=== PATIENT | male | born 1960 | race Caucasian/White ===

== ENCOUNTER → 2018-11-17 | Outpatient (CLI) | payer OTHER ==
[~2018-11-17] MED LIST: METHACHOLINE KIT (J7674) INH ONE
== END ==
LOC: M CARPUL 14:24
PROVIDERS: ATTEND Internal Medicine Pulmonary Disease
DX: R05 Cough (principal)

== ENCOUNTER → 2019-04-18 | Outpatient (CLI) | payer OTHER ==
--- NOTE | 2019-04-18 14:03 | PFTRPT ---
Site: [facility], [address] [place], [address] ID: [id number] Name: AVA FELDER Visit Date: 04/18/2019 Second ID: [id number] Referring Doctor: Nitish Everett MD Reviewing Doctor: Nitish Everett MD Healthcare Prof: Perez PITTMAN, DAKOTA Age: 59 : 1960 Sex: Male Race: Height: 69.25 Inches Weight: 300.00 Lbs BSA: 2.46 Order IDs: [id number] Requested Test(s): <RESP-PFT.METH CHAL> Diagnosis: R05 of albuterol for postbronchodilator. Review Status: Not Reviewed Pre-Bronch Post-Bronch Pred Actual %Pred Actual %Chng SPIROMETRY FVC (L) 4.70 1.96 41 1.80 -8 FEV1 (L) 3.57 1.49 41 1.41 -5 FEV1/FVC (%) 76 76 100 78 2 FEF 25% (L/sec) 8.66 3.29 37 3.74 13 FEF 50% (L/sec) 5.61 1.52 27 1.25 -17 FEF 75% (L/sec) 1.72 0.46 26 0.32 -30 FEF 25-75% (L/sec) 2.99 1.18 39 0.92 -22 FEF Max (L/sec) 9.18 4.48 48 4.36 -2 FIVC (L) 1.88 1.68 -10 FIF 50% (L/sec) 4.77 3.32 69 3.19 -3 FIF Max (L/sec) 3.32 3.20 -3 Expiratory Time (sec) 7.26 7.38 1 Back Extrap Vol (L) 0.04 0.05 22 Time To FEFmax (sec) 0.068 0.086 26
== END ==
LOC: M CARPUL 13:13
PROVIDERS: ATTEND Internal Medicine Pulmonary Disease
DX: R05 Cough (principal)
CPT/HCPCS: 94070; J7674

== ENCOUNTER → 2020-04-08 | Outpatient (CLI) | payer SELFPAY | LOC: M LABSMTC 18:25 | PROVIDERS: ATTEND Pediatrics | DX: Z20.828 Contact with and (suspected) exposure to other viral communicable diseases (principal) ==

== ENCOUNTER → 2020-09-09 | Outpatient (CLI) | payer OTHER ==
--- NOTE | 2020-09-09 13:15 | REPPI ---
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 FINDINGS: The mediastinum and cardiac silhouette are normal. The lung rothman are limited in evaluation due to poor inspiratory effort. Lateral view cannot exclude posterobasilar atelectasis and correlation is recommended. No effusion. No pneumothorax. The skeletal structures are intact and normal. IMPRESSION: Cannot exclude posterior basilar atelectasis. <Electronically signed by J Carlos Solis > 09/09/20 [id number]
== END ==
LOC: M PLAIMG 10:26
PROVIDERS: ATTEND Internal Medicine Pulmonary Disease
DX: J45.40 Moderate persistent asthma, uncomplicated (principal)

== ENCOUNTER → 2023-12-20 | Outpatient (CLI) | payer BC | LOC: M SLEEP 20:00 | PROVIDERS: ATTEND Internal Medicine Pulmonary Disease | DX: G47.33 Obstructive sleep apnea (adult) (pediatric) (principal) ==